=== PATIENT | female | born 1980 ===

== ENCOUNTER 2022-10-06 11:03 | Day surgery (SDC) | payer OTHER ==
[~2022-10-06 11:03] MED LIST: FERRIC CARBOXYMALTOSE 750 MG in SODIUM CHLORIDE 250 ML IVPB ONE
[2022-10-06 18:47] VITALS: RESP 18; TEMP 97.9
[2022-10-06 19:13] VITALS: BP 127/78; PULSE 94
== END 2022-10-06 12:00 | disposition home or self-care (01) ==
LOC: J7W 11:03 → JONCNONCHE 11:03
PROVIDERS: ATTEND Internal Medicine Hematology & Oncology
PROC: 3E033GC Introduction of Other Therapeutic Substance into Peripheral Vein, Percutaneous Approach (ICD-10-PCS; principal; 2022-10-06)
DX: D50.9 Iron deficiency anemia, unspecified (principal)
CPT/HCPCS: 96365; J1439

== ENCOUNTER 2022-10-13 09:58 | Day surgery (SDC) | payer OTHER ==
[2022-10-13 16:46] VITALS: BP 136/90; PULSE 87; RESP 20; TEMP 98.3
== END 2022-10-13 11:15 | disposition home or self-care (01) ==
LOC: JONCNONCHE 09:58 → J7W 09:59 → JONCNONCHE 11:15
PROVIDERS: ATTEND Internal Medicine Hematology & Oncology
PROC: 3E033GC Introduction of Other Therapeutic Substance into Peripheral Vein, Percutaneous Approach (ICD-10-PCS; principal; 2022-10-13)
DX: D50.9 Iron deficiency anemia, unspecified (principal)
CPT/HCPCS: 96365; J1439